=== PATIENT | male | born 1940 | race Caucasian/White ===

== ENCOUNTER 2021-04-16 12:45 | Emergency (ER) | payer MEDICARE, OTHER, SELFPAY ==
--- NOTE | ~2021-04-16 | XR_ITS ---
XR lumbar spine 2-3V DATE: 04/16/2021 13:24 INDICATION: Fall backwards. Right low back pain. TECHNIQUE: AP, lateral, coned lateral lumbosacral views COMPARISON: None FINDINGS: There is degenerative spurring of the lower thoracic spine, particularly at T11-12. There is moderate degenerative disc disease at L1-2, L2-3, L3-4 and mild degenerative disc disease at L4-5. There is severe degenerative disc disease at L5-S1. There is mild retrolisthesis at L2-3. There is grade 1 anterolisthesis due to degenerative change at the apophyseal joints at L3-4 and L4-5 . No fracture or bone destruction is evident. The lumbar pedicles are intact. Status post L4 laminectomy. The sacroiliac joints are intact. There is a 2.5 cm sclerotic lesion of the right superior acetabulum and a 1 cm sclerotic lesion of S2 ; consider bone islands versus osteosclerotic metastatic disease from prostate cancer. 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 Radionuclide bone scan can help differentiate these possibilities. Reviewed, dictated and finalized at location A. 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 Radionuclide bone scan can hel p differentiate these possibilities.
[2021-04-16 12:56] VITALS: BP 145/76; PULSE 75; RESP 16; TEMP 36.8; O2SAT 100
--- NOTE | 2021-04-16 12:56 | ED.BACK ---
HPI - Back Pain/Injury General Chief Complaint: Back Pain/Injury Stated Complaint: Back pain from fall Time Seen by Provider: 04/16/21 13:30 Source: patient and RN notes reviewed Mode of arrival: ambulatory Limitations: no limitations History of Present Illness HPI Narrative: 81-year-old male presents with concern for back pain after a fall. 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 He reports he tripped on a bathroom carpet and fell 2 days ago aggravating his back pain reports pain on the right lower back. He denies hip pain, groin pain. Reports he can find a position of comfort, however movement exacerbates the pain. He denies abdominal pain, fever, loss of bowel or bladder function, perianal anesthesia, new weakness in any extremity. MD elicited complaint: back pain Related Data Home Medications Medication Instructions Recorded Confirmed carvedilol 12.5 mg PO BID 04/16/21 04/16/21 famotidine 20 mg PO DAILY 04/16/21 04/16/21 hydrochlorothiazide 12.5 mg PO DAILY 04/16/21 04/16/21 prednisone 300 mg PO 2XW 04/16/21 04/16/21 simvastatin 20 mg PO DAILY 04/16/21 04/16/21 Allergies Allergy/AdvReac Type Severity Reaction Status Date / Time losartan Allergy Swelling Verified 04/16/21 13:09 Review of Systems Review of Systems: CONSTITUTIONAL: Denies malaise, chills, sweats, or fever. CARDIOVASCULAR: Denies chest pain, palpitations, or edema. RESPIRATORY: Denies cough or dyspnea. GASTROINTESTINAL: Denies abdominal pain, denies loss of bowel function or perianal anesthesia : Denies loss of bladder function SKIN: Denies rash or itching. MUSCULOSKELETAL: Reports right low back pain NEUROLOGIC: Denies numbness, weakness, or headache. All systems reviewed & are unremarkable except as noted in HPI and below PMFSH Comments At time of signature, agree with nursing past medical, surgical, social and family history. There is no relevant family history pertinent to the presenting complaint Exam Narrative: GENERAL: Well-appearing, well-nourished, and in no acute distress. HEAD: Normocephalic, atraumatic. EYES: PERRLA and EOMI. NECK: Supple. No lymphadenopathy. CHEST: Clear to auscultation. No respiratory distress. HEART: Regular rate and rhythm. Distal pulses palpable and equal, cap refill <3 seconds ABDOMEN: Soft, nontender, nondistended, normal active bowel sounds, no palpable or pulsatile masses. No CVA tenderness MUSCULOSKELETAL: Normal range of motion before patient and strength in all extremities; 5/5 strength with dorsiflexion and extension, knee flexion and extension, plantar flexion and extension. Normal sensation in dermatomal distributions with sensitivity to light touch. No midline back tenderness to palpation. No paraspinal tenderness. Transfers from lsitting to standing. SKIN: Warm, dry, no rash. No ecchymosis, erythema, open wounds to back. NEURO: No focal deficits. Alert and oriented x3. Patient walking with a walker. PSYCH: Normal mood and affect Course Course Emergency Course: Endings with patient, including acetabular lesions. Discussed need for follow-up with primary care provider for further evaluation. Patient reports he will call his primary care provider and will also follow-up with his neurologist. Patient is aware of diagnosis, understands and agrees to treatment plan. Anticipatory guidance given. Patient agrees to follow-up as directed and is aware of reasons to seek care at the emergency department. Portions of this record may have been created with voice recognition software Vital Signs Vital signs: Reviewed. MDM - Back Pain/Injury MDM Narrative Medical decision making narrative: No risk factors or findings concerning for epidural abscess, diskitis, vertebral osteomyelitis, cord compression, cauda equina, vertebral fracture or bone malignancy, AAA, or pyelonephritis. Patient instructed to consider further imaging and workup thr
[2021-04-16 13:13] VITALS: BP 145/76; PULSE 75; RESP 16; TEMP 36.8; O2SAT 100
== END 2021-04-16 13:53 | disposition home or self-care (01) ==
PROVIDERS: Emergency Provider Nurse Practitioner
DX: M54.5 Low back pain (principal); E78.00 Pure hypercholesterolemia, unspecified; I10 Essential (primary) hypertension
CPT/HCPCS: 72100; 99213; G0463

== ENCOUNTER 2021-06-14 15:58 | Emergency (ER) | payer MEDICARE, OTHER, SELFPAY ==
--- NOTE | ~2021-06-14 | XR_ITS ---
EXAMINATION: XR shoulder LT min 2V INDICATION: Left shoulder pain TECHNIQUE: Four views of the left shoulder are submitted. COMPARISON: None FINDINGS: There are changes of left total shoulder arthroplasty. Bone alignment is normal. There is n o fracture. Soft tissues are unremarkable. IMPRESSION: 1. No acute osseous abnormality. Reviewed, dictated and finalized at location A.
[2021-06-14 16:16] VITALS: BP 121/64; PULSE 68; RESP 20; TEMP 36.8; O2SAT 99
--- NOTE | 2021-06-14 17:33 | ED.UPPEXIN ---
HPI - Extremity Injury (Upper) General Chief Complaint: Extremity Injury, Upper Stated Complaint: Shoulder complaint Time Seen by Provider: 06/14/21 17:22 Source: patient and RN notes reviewed Mode of arrival: ambulatory Limitations: no limitations History of Present Illness HPI narrative: Patient presents today complaining of left shoulder pain x2 weeks, worse over the last 2 days. Patient states he has frequent falls, almost daily, but cannot specify whether or not he has had any over the last 2 days because he does not keep track. Patient had a left total shoulder replacement approximately 2 years ago. He walked into his orthopedic doctor's office today requesting an x-ray and they could not accommodate or see him and he has come in here today requesting an x-ray. Denies any injury. Pain increases with movement. Patient is newly diabetic and is requesting that we check his blood sugar as well. MD complaint: injury to: left and shoulder Related Data Home Medications Medication Instructions Recorded Confirmed carvedilol 12.5 mg PO BID 04/16/21 06/14/21 famotidine 20 mg PO DAILY 04/16/21 06/14/21 hydrochlorothiazide 12.5 mg PO DAILY 04/16/21 06/14/21 prednisone 300 mg PO 2XW 04/16/21 06/14/21 simvastatin 20 mg PO DAILY 04/16/21 06/14/21 alendronate 70 mg PO WEEKLY 06/14/21 06/14/21 amlodipine 5 mg PO DAILY 06/14/21 06/14/21 calcium carbonate-vitamin D3 1 tablet PO BID 06/14/21 06/14/21 [Oysco 500/D] insulin NPH isoph U-100 human See Rx Instructions .ROUTE .COMPLEX 06/14/21 06/14/21 [Humulin N NPH Insulin KwikPen] trazodone 50 mg PO DAILY 06/14/21 06/14/21 Allergies Allergy/AdvReac Type Severity Reaction Status Date / Time losartan Allergy Swelling Verified 06/14/21 16:27 Review of Systems Review of Systems: CONSTITUTIONAL: Denies body aches, fever, chills, or sweats. EYES: Denies visual changes, redness, or discharge. ENT: Denies rhinorrhea, congestion, sore throat, or otalgia. CARDIOVASCULAR: Denies chest pain, palpitations, or edema. RESPIRATORY: Denies cough or dyspnea. GASTROINTESTINAL: Denies abdominal pain, nausea, vomiting, or diarrhea. GENITOURINARY: Denies dysuria or hematuria. SKIN: Denies rash, itching, or wounds. MUSCULOSKELETAL: Denies back pain, or myalgia. + Left shoulder pain NEUROLOGIC: Denies headache, numbness, tingling, or weakness. PSYCH: Denies depression or anxiety. [facility] Past Medical History Medical History (Updated 06/15/21 @ 00:00 by Skyler Poon) Diabetes Surgical History Surgical History (Updated 06/14/21 @ 17:35 by Johana Wheeler, [facility], ) H/O total shoulder replacement Comments At time of signature, I have reviewed and agree with nursing past medical, surgical, social and family history unless otherwise noted. Please see nursing chart for further information. There is no relevant family history pertinent to the presenting complaint Exam Narrative: GENERAL: Well-appearing, well-nourished, and in no acute distress. HEAD: Normocephalic, atraumatic. EYES: EOMI. No redness or drainage. Conjunctivae normal. ENT: Mucous membranes pink and moist. NECK: Normal AROM. CHEST: No respiratory distress. EXTREMITIES: Left shoulder: Tenderness to anterior and lateral shoulder. Pain with any movement. Distal sensation intact. Capillary refill normal. Radial pulse normal. Patient has 4 fingers on the right hand. SKIN: Warm, dry, no rash. Capillary refill normal. Normal skin turgor. NEURO: No focal deficits. Alert and oriented x3. Gait steady. PSYCH: Normal affect. No signs of depression or anxiety. Course Vital Signs Vital signs: Vital Signs Temperature 98.2 F 06/14/21 16:16 Pulse Rate 68 06/14/21 16:16 Respiratory Rate 06/14/21 16:16 Blood Pressure 121/64 06/14/21 16:16 Pulse Oximetry 99 06/14/21 16:16 Temperature 98.2 F 06/14/21 16:16 Pulse Rate 68 06/14/21 16:16 Respiratory Rate 06/14/21 16:16 Blood Pressure 1
[2021-06-14 17:39] LABS: Glucose Point of Care 111 mg/dl (65-105)
--- NOTE | 2021-06-14 18:50 | PC.NURSE ---
1819 noted pt requested fingerstick blood sugar during stay. reports he is a new diabetic and monitors blood sugar closely at home. denies symptoms for hypoglycemia.
== END 2021-06-14 18:20 | disposition home or self-care (01) ==
PROVIDERS: Emergency Provider Nurse Practitioner
DX: M25.512 Pain in left shoulder (principal); E11.9 Type 2 diabetes mellitus without complications; Z79.4 Long term (current) use of insulin; Z96.612 Presence of left artificial shoulder joint
CPT/HCPCS: 73030; 82948; 99213; G0463

== ENCOUNTER 2022-10-26 15:55 | Emergency (ER) | payer MEDICARE, OTHER, SELFPAY ==
--- NOTE | 2022-10-26 15:58 | ED.EYEPROB ---
HPI - Eye Problem General Chief complaint: Eye Problems Stated complaint: Eye Problem Time Seen by Provider: 10/26/22 16:15 Source: patient and RN notes reviewed Mode of arrival: ambulatory Limitations: no limitations History of Present Illness HPI Narrative: 82-year-old male presents concern for left eye pain. Reports he was at the [facility] today for prolonged workup of an eye problem he has been having. Reports they numb his eye for this exam. Reports when he got home and the numbness for off he had pain to his eye. He denies any vision changes. Reports watery drainage. MD chief complaint: eye pain Related Data Home Medications Medication Instructions Recorded Confirmed carvedilol 12.5 mg tablet 12.5 mg PO BID 04/16/21 06/14/21 hydrochlorothiazide 12.5 mg tablet 12.5 mg PO DAILY 04/16/21 06/14/21 prednisone 50 mg tablet 300 mg PO 2XW 04/16/21 06/14/21 simvastatin 20 mg tablet 20 mg PO DAILY 04/16/21 06/14/21 insulin NPH isoph U-100 human 100 See Rx Instructions .Route .COMPLEX 06/14/21 06/14/21 unit/mL (3 mL) subcutaneous pen (Humulin N NPH U-100 Insulin KwikPen) calcium carbonate 500 mg calcium 500 mg PO BID 10/26/22 10/26/22 (1,250 mg) tablet furosemide 40 mg tablet 40 mg PO DAILY 10/26/22 10/26/22 Allergies Allergy/AdvReac Type Severity Reaction Status Date / Time losartan Allergy Swelling Verified 10/26/22 16:27 Review of Systems Review of Systems: CONSTITUTIONAL: Denies malaise, chills, sweats, or fever. EYES: Denies visual changes. Reports left eye redness, pain, watery discharge. ENT: Denies rhinorrhea, congestion, sinus pain, otalgia or sore throat. SKIN: Denies rash or itching. NEUROLOGIC: Denies numbness, weakness, or headache. PSYCHIATRIC: Denies anxiety or depression. All systems reviewed & are unremarkable except as noted in HPI and below PMFSH Past Medical History Medical History (Updated 10/26/22 @ 16:28 by Nan Anthony NP) Diabetes Surgical History Surgical History (Updated 06/14/21 @ 17:35 by Johana Wheeler, [employer], [place]) H/O total shoulder replacement Comments At time of signature, agree with nursing past medical, surgical, social and family history. There is no relevant family history pertinent to the presenting complaint Exam Narrative: GENERAL: Well-appearing, well-nourished, and in no acute distress. HEAD: Normocephalic, atraumatic. EYES: PERRLA, right conjunctivae and sclera clear, and EOMI. No nystagmus. Left conjunctivae clear, sclera injected with corneal abrasion noted the plan was lamp exam. Upper and lower eyelid unremarkable, no periorbital edema noted ENT: Nares clear. Mucous membranes moist. NECK: Supple. CHEST: No respiratory distress. Speaks in full sentences. HEART: Regular rate and rhythm. SKIN: Warm, dry, no visible rash. NEURO: Alert and oriented x3. PSYCH: Normal mood and affect Course Course Emergency Course: Patient is aware of diagnosis, understands and agrees to treatment plan. Anticipatory guidance given. Patient agrees to follow-up as directed and is aware of reasons to seek care at the emergency department. Portions of this record may have been created with voice recognition software Level of Care: Express Care Visit Vital Signs Vital signs: Reviewed. Procedures Other Procedure Procedure 1: Other Procedure: Tetracaine 1 gtt instilled in left eye, fluorescein stain applied. Corneal abrasion noted upon martinez lamp exam at approximately 6 and 7 o'clock in relation to the pupil. Eye washed with NS 100 ml. No foreign bodies or Ben sign noted. MDM - Eye Problem MDM Narrative Medical decision making narrative: Consideration of the following conditions may be warranted for the presenting problem, they are not final diagnoses: Bacterial conjunctivitis, allergic conjunctivitis, viral conjunctivitis, foreign body, blepharitis, chalazion, hordeolum, corneal abrasion, preseptal cellulitis, orbital cellulitis. No
[2022-10-26 16:02] VITALS: BP 175/113; PULSE 70; RESP 20; TEMP 36.2; O2SAT 100
== END 2022-10-26 16:58 | disposition home or self-care (01) ==
PROVIDERS: Emergency Provider Nurse Practitioner; PCP Internal Medicine
DX: S05.02XA Injury of conjunctiva and corneal abrasion without foreign body, left eye, initial encounter (principal); E11.9 Type 2 diabetes mellitus without complications; Z79.4 Long term (current) use of insulin; X58.XXXA Exposure to other specified factors, initial encounter
CPT/HCPCS: 99213; A9270; G0463

== ENCOUNTER 2022-10-28 10:25 | Emergency (ER) | payer MEDICARE, OTHER, SELFPAY ==
--- NOTE | ~2022-10-28 | XR_ITS ---
Right Shoulder Technique: AP and axillary views were obtained. Clinical History: Pain Findings: No fracture or dislocation is seen. Suture anchor is noted in the right humeral head. There is moderate AC joint degenerative change. There is minimal glenohumeral joint degenerative change. S oft tissues are unremarkable. Impression: No acute fracture or dislocation. Degenerative changes, as above. Suture anchors at the humeral head. Reviewed, dictated and finalized at location . OL COUNSELOR Impression: No acute fracture or dislocation. Degenerative changes, as above. Suture anchors at the humeral head.
--- NOTE | ~2022-10-28 | XR_ITS ---
Lumbosacral Spine: AP and lateral views Clinical History: Pain COMPARISON: 04/16/2021 Findings: The normal lordotic curve is maintained. No acute fracture seen. 5 mm anterolisthesis of L3 over L4 noted. 4 mm retrolisthesis of L2 over L3 noted. There are diffuse facet joint degenerative c hanges in lumbar spine, especially from L3 through S1. There is advanced degenerative disc narrowing at L5-S1. The sacroiliac joints are normally outlined. Stable sclerotic lesion noted in the superior right acetabular region. Impression: No acute fracture. Moderate degenerative spondylosis, similar to prior exam. 5 mm anterolisthesis of L3 over L4. 4 mm retrolisthesis of L2 over L3. Stable sclerotic lesion, partially imaged in the superior right acetabular region. Reviewed, dictated and finalized at [facility]. 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 Moderate degenerative spondylosis, similar to prior exam. 5 mm anterolisthesis of L3 over L4. 4 mm retrolisthesis of L2 over L3. Stable sclerotic lesion, partially imaged in the superior right acetabular tacho on.
[2022-10-28 10:31] VITALS: BP 125/72; PULSE 78; RESP 16; TEMP 36.6; O2SAT 98
--- NOTE | 2022-10-28 10:51 | ED.BACK ---
HPI - Back Pain/Injury General Chief Complaint: Back Pain/Injury Stated Complaint: Back and shoulder injury Time Seen by Provider: 10/28/22 10:35 Source: patient Mode of arrival: ambulatory Limitations: no limitations History of Present Illness HPI Narrative: Jayce is an 82-year-old male patient presenting to the clinic today with complaints of right-sided low back pain and right shoulder pain after a fall 5 days ago. He reports he fell over a stack of chairs and tripped on a step and fell into a sunken living room. He reports pain to the right lateral shoulder and to the right low back. History of back surgery Related Data Home Medications Medication Instructions Recorded Confirmed carvedilol 12.5 mg tablet 12.5 mg PO BID 04/16/21 10/28/22 hydrochlorothiazide 12.5 mg tablet 12.5 mg PO DAILY 04/16/21 10/28/22 prednisone 50 mg tablet 250 mg PO Q48H 04/16/21 10/28/22 simvastatin 20 mg tablet 20 mg PO DAILY 04/16/21 10/28/22 insulin NPH isoph U-100 human 100 See Rx Instructions .Route .COMPLEX 06/14/21 10/28/22 unit/mL (3 mL) subcutaneous pen (Humulin N NPH U-100 Insulin KwikPen) calcium carbonate 500 mg calcium 500 mg PO BID 10/26/22 10/28/22 (1,250 mg) tablet furosemide 40 mg tablet 40 mg PO DAILY 10/26/22 10/28/22 Allergies Allergy/AdvReac Type Severity Reaction Status Date / Time losartan Allergy Swelling Verified 10/28/22 10:30 Review of Systems Review of Systems: Pertinent positives per HPI. Patient denies any fever, chills, rash, headache, visual changes, dizziness, cough, runny nose, sore throat, shortness of breath, chest pain, palpitations, nausea, vomiting, diarrhea, constipation, abdominal pain, or any urinary issues. [facility] Past Medical History Medical History Diabetes Surgical History Surgical History H/O total shoulder replacement Comments At the time of my signature, I reviewed and agree with the nursing past medical, surgical, social, and family history. There is no relevant family history pertinent to the patient complaint. Exam Narrative: General: Well-developed, well nourished, in no apparent distress Head: Normocephalic, atraumatic. Cardio: Regular rate and rhythm, s1 and s2 normal, no murmur appreciated. Resp: Clear to auscultation bilaterally, no rhonchi, rales, wheezing or rubs. Musculoskeletal: No deformity, tender to palpation over the right lower back and the lateral shoulder, grossly normal range of motion, muscle strength strong and equal, peripheral pulse strong, no edema, no cyanosis, normal gait and station Course Course Emergency Course: Portions of this record may have been created with voice recognition software. Level of Care: Express Care Visit Vital Signs Vital signs: Vital Signs Temperature 36.6 C 10/28/22 10:31 Pulse Rate 78 10/28/22 10:31 Respiratory Rate 16 10/28/22 10:31 Blood Pressure 125/72 10/28/22 10:31 Pulse Oximetry 98 10/28/22 10:31 Oxygen Delivery Room Air 10/28/22 10:31 Temperature 36.6 C 10/28/22 10:31 Pulse Rate 78 10/28/22 10:31 Respiratory Rate 16 10/28/22 10:31 Blood Pressure 125/72 10/28/22 10:31 Pulse Oximetry 98 10/28/22 10:31 Oxygen Delivery Room Air 10/28/22 10:31 Vital signs reviewed MDM - Back Pain/Injury MDM Narrative Medical decision making narrative: At the time of visit patient is resting comfortably on exam table. X-rays of the right shoulder and lumbar spine obtained and were negative for any acute fracture or malalignment. I suspect the patient has no back and shoulder contusion. Supportive measures were discussed with the patient he voiced understanding of discharge instructions and agrees to treatment plan Differential Diagnosis Differential diagnosis: Likely strain of lumbar region and other (Soft tissue injury, lumbar spine fracture) Imaging
--- NOTE | 2022-10-28 11:28 | PC.NURSE ---
PT TAKEN TO RADIOLOGY IN WHEELCHAIR
== END 2022-10-28 11:18 | disposition home or self-care (01) ==
PROVIDERS: Emergency Provider Nurse Practitioner Family
DX: M54.50 Low back pain, unspecified (principal); S40.011A Contusion of right shoulder, initial encounter; W01.0XXA Fall on same level from slipping, tripping and stumbling without subsequent striking against object, initial encounter; E11.9 Type 2 diabetes mellitus without complications; Z79.4 Long term (current) use of insulin
CPT/HCPCS: 72100; 73030; 99214; G0463

== ENCOUNTER 2022-11-22 13:06 | Emergency (ER) | payer MEDICARE, OTHER, SELFPAY ==
--- NOTE | ~2022-11-22 | XR_ITS ---
XR foot RT min 3V DATE: 11/22/2022 13:50 INDICATION: Fell up and then down steps on 11/21/2022 TECHNIQUE: 4 views COMPARISON: None FINDINGS: Osteopenia. There is a staple of the proximal phalanx of the first digit and radiopaque fusion devices bridging t he proximal interphalangeal joints of the second through fourth digits. Hallux valgus and bunion deformity. Severe osteoarthritis at the first metatarsophalangeal joint. Prominent plantar and posterior calcaneal enthesopathy without erosive change or periostitis. Degenerative changes at the tibiotalar and tarsal joints. 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
--- NOTE | ~2022-11-22 | XR_ITS ---
XR ankle RT min 3V DATE: 11/22/2022 13:51 INDICATION: Fell up and then down steps on 11/21/2022. Medial pain. TECHNIQUE: 4 views COMPARISON: None FINDINGS: No fracture or dislocation of the ankle or disruption of the ankle mortise is detected. There is osteoarthritis of the tibiotalar joint. Prominent plantar and posterior calcaneal enthesopathy. Postoperative changes at the first through fourth phalanges. IMPRESSION: Prominent plantar and posterior calcaneal enthesopathy Osteoarthritic arthritis at tibiotalar joint No fracture or dislocation Reviewed, dictated and finalized at location L. 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
[2022-11-22 13:13] VITALS: BP 155/76; PULSE 80; RESP 18; TEMP 36.6; O2SAT 98
--- NOTE | 2022-11-22 13:32 | ED.LOWEXIN ---
HPI - Extremity Injury (Lower) General Chief Complaint: Extremity Injury, Lower Stated Complaint: Right ankle injury Source: patient and RN notes reviewed History of Present Illness HPI Narrative: 82-year-old male presents urgent care with complaints right foot bruising and swelling. Patient states yesterday he tripped up the stairs causing him to injure his right foot. Patient reports history of neuropathy in both lower legs and feet but states yesterday after the incident he had a sharp pain in his right medial foot that radiated up to his ankle. Patient denies any head injury or LOC. Denies any neck pain, chest pain, or shortness of breath. Some parts of this dictation were generated by voice recognition software and may contain typographical and/or grammatical inaccuracies. Related Data Home Medications Medication Instructions Recorded Confirmed carvedilol 12.5 mg tablet 12.5 mg PO BID 04/16/21 11/22/22 hydrochlorothiazide 12.5 mg tablet 12.5 mg PO DAILY 04/16/21 11/22/22 prednisone 50 mg tablet 250 mg PO Q48H 04/16/21 11/22/22 simvastatin 20 mg tablet 20 mg PO DAILY 04/16/21 11/22/22 insulin NPH isoph U-100 human 100 See Rx Instructions .Route .COMPLEX 06/14/21 11/22/22 unit/mL (3 mL) subcutaneous pen (Humulin N NPH U-100 Insulin KwikPen) calcium carbonate 500 mg calcium 500 mg PO BID 10/26/22 11/22/22 (1,250 mg) tablet furosemide 40 mg tablet 40 mg PO DAILY 10/26/22 11/22/22 Allergies Allergy/AdvReac Type Severity Reaction Status Date / Time losartan Allergy Swelling Verified 11/22/22 13:19 Review of Systems Review of Systems: CONSTITUTIONAL: Denies fever, chills, or sweats. EYES: Denies visual changes, redness, or discharge. ENT: Denies otalgia and sore throat CARDIOVASCULAR: Denies chest pain, palpitations, or edema. RESPIRATORY: Denies cough or dyspnea. GASTROINTESTINAL: Denies abdominal pain, nausea, vomiting, or diarrhea. GENITOURINARY: Denies dysuria or hematuria. SKIN: Bruising to right foot MUSCULOSKELETAL: Right foot swelling NEUROLOGIC: Denies headache, numbness, or weakness. [facility] Past Medical History Medical History Diabetes Surgical History Surgical History H/O total shoulder replacement Comments At the time of my signature, I reviewed and agree with the nursing past medical, surgical, social, and family history. There is no relevant family history pertinent to the patient complaint. Exam Narrative: GENERAL: This is a well-nourished, well-developed patient, in no apparent distress. HEAD: normocephalic, atraumatic. EYES: PERRL. Sclera clear/white. Vision is grossly intact. EARS: External ears normal, auditory canals clear and without drainage, TMs normal without perforation. Hearing grossly intact. NOSE: External nose normal with no obvious nasal discharge, nares without redness, no rhinorrhea. THROAT: Mucous membranes moist, posterior pharynx clear. NECK: Neck supple, non-tender without lymphadenopathy, masses or thyromegaly. CARDIOVASCULAR: Regular rate and rhythm without murmurs, gallops, or rubs. RESPIRATORY: Clear to auscultation. Breath sounds equal bilaterally. No wheezes, rales, or rhonchi. GASTROINTESTINAL: Abdomen soft, non-tender, nondistended. Bowel sounds are active. No hepato-splenomegaly, or palpable masses. No guarding. SKIN: Ecchymosis noted to right lateral and dorsal foot. NEURO: awake, alert, and oriented to person, place and time. There were no obvious focal neurologic abnormalities. EXTREMITIES: Right foot is edematous. BACK: Nontender without deformity or crepitance. No flank tenderness. Course Course Level of Care: Express Care Visit Vital Signs Vital signs: Vital Signs Temperature 97.9 F 11/22/22 13:13 Pulse Rate 80 11/22/22 13:13 Respiratory Rate 18 11/22/22 13:13 Blood Pressure 155/76 H 11/22/22 13:13 Pulse Ox
== END 2022-11-22 14:27 | disposition home or self-care (01) ==
PROVIDERS: Emergency Provider Nurse Practitioner Family; PCP Internal Medicine
DX: S93.601A Unspecified sprain of right foot, initial encounter (principal); E11.9 Type 2 diabetes mellitus without complications; Z79.4 Long term (current) use of insulin; W10.8XXA Fall (on) (from) other stairs and steps, initial encounter
CPT/HCPCS: 73610; 73630; 99213; G0463

== ENCOUNTER 2022-12-06 12:57 | Emergency (ER) | payer MEDICARE, OTHER, SELFPAY ==
--- NOTE | ~2022-12-06 | XR_ITS ---
EXAMINATION: XR shoulder RT min 2V, XR humerus RT DATE: 12/06/2022 14:04 INDICATION: Right shoulder and upper arm pain post fall few weeks prior. TECHNIQUE: 1. AP internally and externally rotated, AP oblique externally rotated and transscapular Y views of t he right shoulder were obtained. 2. Internal and externally rotated views of the right humerus were obtained. COMPARISON: Right shoulder radiographs dated 10/28/2022 FINDINGS: Normal alignment. No fracture. Mild polyarticular osteoarthritis at the right acromioclavicular, gle nohumeral and elbow joints. Suture anchors along the right greater tuberosity consistent with prior r otator cuff repair. Prominent bone island along the inferior glenoid. Soft tissues are unremarkable. Visualized portion of the lungs are clear. IMPRESSION: Mild polyarticular osteoarthritis at the right shoulder and elbow. No acute onset abnormality. Reviewed, dictated and finalized at location A. IMPRESSION: Mild polyarticular osteoarthritis at the right shoulder and elbow. No acute ons et abnormality.
[2022-12-06 13:08] VITALS: BP 181/82; PULSE 91; RESP 24; TEMP 36.8; O2SAT 95
--- NOTE | 2022-12-06 13:30 | ED.UPPEXIN ---
HPI - Extremity Injury (Upper) General Chief Complaint: Extremity Injury, Upper Stated Complaint: right arm injury Time Seen by Provider: 12/06/22 14:35 Source: patient and RN notes reviewed Mode of arrival: ambulatory Limitations: no limitations History of Present Illness HPI narrative: 82-year-old male presents with concern for right shoulder and arm pain. Reports he fell about a week ago. Reports he was seen for his ankle which was bothering him the most of the time. Reports he was not seen for his shoulder at that time. Reports he has been taking ibuprofen complaint: injury to: right and shoulder Related Data Home Medications Medication Instructions Recorded Confirmed carvedilol 12.5 mg tablet 12.5 mg PO BID 04/16/21 11/22/22 hydrochlorothiazide 12.5 mg tablet 12.5 mg PO DAILY 04/16/21 11/22/22 prednisone 50 mg tablet 250 mg PO Q48H 04/16/21 11/22/22 simvastatin 20 mg tablet 20 mg PO DAILY 04/16/21 11/22/22 insulin NPH isoph U-100 human 100 See Rx Instructions .Route .COMPLEX 06/14/21 11/22/22 unit/mL (3 mL) subcutaneous pen (Humulin N NPH U-100 Insulin KwikPen) calcium carbonate 500 mg calcium 500 mg PO BID 10/26/22 11/22/22 (1,250 mg) tablet furosemide 40 mg tablet 40 mg PO DAILY 10/26/22 11/22/22 apixaban 5 mg tablet (Eliquis) mg 12/06/22 Allergies Allergy/AdvReac Type Severity Reaction Status Date / Time losartan Allergy Swelling Verified 11/22/22 13:19 Review of Systems Review of Systems: CONSTITUTIONAL: Denies malaise, chills, sweats, or fever. CARDIOVASCULAR: Denies chest pain, palpitations, or edema. RESPIRATORY: Denies cough or dyspnea. SKIN: Denies rash or itching, bruising, redness, swelling. MUSCULOSKELETAL: Reports right shoulder and arm pain NEUROLOGIC: Denies numbness, weakness All systems reviewed & are unremarkable except as noted in HPI and below PMFSH Past Medical History Medical History Diabetes Surgical History Surgical History H/O total shoulder replacement Comments At time of signature, agree with nursing past medical, surgical, social and family history. There is no relevant family history pertinent to the presenting complaint Exam Narrative: GENERAL: Well-appearing, well-nourished, and in no acute distress. HEAD: Normocephalic, atraumatic. EYES: PERRLA, conjunctivae clear NECK: Supple. CHEST: Speaks in full sentences. No respiratory distress. HEART: Regular rate and rhythm. Normal and equal peripheral pulses. EXTREMITIES: Right shoulder and arm have grossly normal strength and sensation, limited range of motion. No edema or ecchymosis. 5/5 strength with shoulder abduction, adduction. Normal sensation with sensitivity to light touch and pain. No point tenderness. No open wounds, no skin tenting, no devitalized tissue or atrophy, no trophic changes, no obvious deformity, alignment normal, nearby joints and structures intact. Distal pulses palpable and equal bilaterally, skin warm, dry, pink. Capillary refill less than 3 seconds. SKIN: Warm, dry, no rash. NEURO: Alert and oriented x3. PSYCH: Normal mood and affect Course Course Emergency Course: Patient is aware of diagnosis, understands and agrees to treatment plan. Anticipatory guidance given. Patient agrees to follow-up as directed and is aware of reasons to seek care at the emergency department. Portions of this record may have been created with voice recognition software Level of Care: Express Care Visit Vital Signs Vital signs: Vital Signs Temperature 98.3 F 12/06/22 13:08 Pulse Rate 91 12/06/22 13:08 Respiratory Rate 24 H 12/06/22 13:08 Blood Pressure 181/82 H 12/06/22 13:08 Pulse Oximetry 95 12/06/22 13:08 Oxygen Delivery Room Air 12/06/22 13:08 Temperature 98.3 F 12/06/22 13:08 Pulse Rate 91 12/06/22 13:08 Respiratory Rate 24 H 12/06/22 13
== END 2022-12-06 14:49 | disposition home or self-care (01) ==
PROVIDERS: Emergency Provider Nurse Practitioner; PCP Internal Medicine
DX: S49.91XA Unspecified injury of right shoulder and upper arm, initial encounter (principal); W19.XXXA Unspecified fall, initial encounter; E11.9 Type 2 diabetes mellitus without complications; Z79.4 Long term (current) use of insulin
CPT/HCPCS: 73030; 73060; 99214; A4565; G0463

== ENCOUNTER 2023-03-16 15:25 | Emergency (ER) | payer MEDICARE, OTHER, SELFPAY ==
[2023-03-16 15:36] VITALS: BP 148/85; PULSE 99; RESP 16; TEMP 36.2; O2SAT 98
--- NOTE | 2023-03-16 15:48 | ED.MALEGU ---
HPI - Male Genitourinary General Chief complaint: Urogenital-Male Stated complaint: Urinary Problem Source: patient and RN notes reviewed Limitations: no limitations History of Present Illness HPI Narrative: Patient is an 83-year-old male who presents to the [facility] with urinary urgency and frequency. Patient states that he urinates small amounts very frequently. States that his symptoms have been present for 3 weeks. He denies dysuria, flank pain, hematuria. Denies recent fevers or chills. He reports history frequent UTIs and pyelonephritis. States that he is unable to get in to his urologist until April 18. States that he wanted to make sure he did not have an UTI today. Related Data Home Medications Medication Instructions Recorded Confirmed carvedilol 12.5 mg tablet 12.5 mg PO BID 04/16/21 03/16/23 hydrochlorothiazide 12.5 mg tablet 12.5 mg PO DAILY 04/16/21 11/22/22 simvastatin 20 mg tablet 20 mg PO DAILY 04/16/21 03/16/23 insulin NPH isoph U-100 human 100 See Rx Instructions .Route .COMPLEX 06/14/21 11/22/22 unit/mL (3 mL) subcutaneous pen (Humulin N NPH U-100 Insulin KwikPen) furosemide 40 mg tablet 40 mg PO DAILY 10/26/22 03/16/23 apixaban 5 mg tablet (Eliquis) 5 mg PO DAILY 12/06/22 03/16/23 alendronate 70 mg tablet 70 mg PO DAILY 03/16/23 03/16/23 donepezil 5 mg tablet 5 mg PO DAILY 03/16/23 03/16/23 famotidine 20 mg tablet 20 mg PO BID 03/16/23 03/16/23 mycophenolate mofetil 500 mg tablet 500 mg PO BID 03/16/23 03/16/23 prednisone 10 mg tablet 10 mg PO DIRECTED 03/16/23 03/16/23 Allergies Allergy/AdvReac Type Severity Reaction Status Date / Time losartan Allergy Swelling Verified 11/22/22 13:19 Review of Systems Review of Systems: CONSTITUTIONAL: Denies fever, chills, or sweats. EYES: Denies visual changes, redness, or discharge. ENT: Denies otalgia and sore throat CARDIOVASCULAR: Denies chest pain, palpitations, or edema. RESPIRATORY: Denies cough or dyspnea. GASTROINTESTINAL: Denies abdominal pain, nausea, vomiting, or diarrhea. GENITOURINARY: Reports urinary urgency and frequency. Denies dysuria or hematuria. SKIN: Denies rash or itching. MUSCULOSKELETAL: Denies back pain, joint pain, or myalgia. NEUROLOGIC: Denies headache, numbness, or weakness. Pertinent positives per HPI. PMFSH Past Medical History Medical History Diabetes Surgical History Surgical History H/O total shoulder replacement Comments At the time of my signature, I reviewed and agree with the nursing past medical, surgical, social, and family history. There is no relevant family history pertinent to the patient complaint. Exam Narrative: GENERAL: This is a well-nourished, well-developed patient, in no apparent distress. HEAD: normocephalic, atraumatic. EYES: Sclera clear/white. Vision is grossly intact. EARS: External ears normal. Hearing grossly intact. NOSE: External nose normal with no obvious nasal discharge, nares without redness, no rhinorrhea. THROAT: Mucous membranes moist. NECK: Neck supple, non-tender without lymphadenopathy, masses or thyromegaly. CARDIOVASCULAR: Regular rate and rhythm without murmurs, gallops, or rubs. RESPIRATORY: Clear to auscultation. Breath sounds equal bilaterally. No wheezes, rales, or rhonchi. GASTROINTESTINAL: Abdomen soft, non-tender, nondistended. Bowel sounds are active. No hepato-splenomegaly, or palpable masses. No guarding. SKIN: warm, intact with no suspicious lesions or rash, good texture and turgor. NEURO: awake, alert, and oriented to person, place and time. There were no obvious focal neurologic abnormalities. BACK: Nontender without deformity or crepitance. No flank tenderness. Course Course Level of Care: Express Care Visit Vital Signs Vital signs: Vital Signs Temperature 97.2 F L 03/16/23 15:36 Pulse Rate 99 03/16/23 15:36
== END 2023-03-16 16:09 | disposition home or self-care (01) ==
PROVIDERS: Emergency Provider Nurse Practitioner
DX: R35.0 Frequency of micturition (principal); E11.9 Type 2 diabetes mellitus without complications; Z79.4 Long term (current) use of insulin
CPT/HCPCS: 81003; 87086; 87088; 99213; G0463

== ENCOUNTER 2023-05-18 15:14 | Emergency (ER) | payer MEDICARE, OTHER, SELFPAY ==
[2023-05-18 15:20] VITALS: BP 143/73; PULSE 72; RESP 20; TEMP 36.6; O2SAT 97
--- NOTE | 2023-05-18 15:38 | ED.GENADULT ---
HPI - General Adult General Chief complaint: Urogenital-Male Stated complaint: Urinary Problem Time Seen by Provider: 05/18/23 15:38 Source: patient and RN notes reviewed Mode of arrival: ambulatory Limitations: no limitations History of Present Illness HPI narrative: 83-year-old male with a history of frequent UTIs and pyelonephritis, presented for concern of UTI for about 2 days. Endorses urinary frequency and dark colored urine. States since taking steroids for neuropathy he no longer feels burning with urination or 'other symptoms' associated with UTIs. States he used a urine test at home and shows he has a uti. Follows with urology, has not contacted them since onset. Denies abdominal pain, flank pain, hematuria, or change in baseline nocturia. Denies n/v/d/f/c. Hx diabetes (steroid induced), DVT, neuropathy Related Data Home Medications Medication Instructions Recorded Confirmed carvedilol 12.5 mg tablet 12.5 mg PO BID 04/16/21 03/16/23 simvastatin 20 mg tablet 20 mg PO DAILY 04/16/21 03/16/23 insulin NPH isoph U-100 human 100 See Rx Instructions .Route .COMPLEX 06/14/21 11/22/22 unit/mL (3 mL) subcutaneous pen (Humulin N NPH U-100 Insulin KwikPen) furosemide 40 mg tablet 40 mg PO DAILY 10/26/22 03/16/23 apixaban 5 mg tablet (Eliquis) 5 mg PO DAILY 12/06/22 03/16/23 alendronate 70 mg tablet 70 mg PO DAILY 03/16/23 03/16/23 donepezil 5 mg tablet 5 mg PO DAILY 03/16/23 03/16/23 famotidine 20 mg tablet 20 mg PO BID 03/16/23 03/16/23 mycophenolate mofetil 500 mg tablet 500 mg PO BID 03/16/23 03/16/23 prednisone 10 mg tablet 10 mg PO DIRECTED 03/16/23 03/16/23 Allergies Allergy/AdvReac Type Severity Reaction Status Date / Time losartan Allergy Swelling Verified 11/22/22 13:19 Review of Systems Review of Systems: CONSTITUTIONAL: Denies body aches, fever, chills, or sweats. CARDIOVASCULAR: Denies chest pain, palpitations, or edema. RESPIRATORY: Denies cough or dyspnea. GASTROINTESTINAL: Denies abdominal pain, nausea, vomiting, or diarrhea. GENITOURINARY: Reports frequency, urgency, denies dysuria, hematuria, flank pain SKIN: Denies rash, itching, or wounds. MUSCULOSKELETAL: Denies back pain or myalgia. [facility] Past Medical History Medical History (Updated 05/18/23 @ 16:01 by Nilsa Zuniga APRN) Diabetes DVT (deep venous thrombosis) Neuropathy Surgical History Surgical History H/O total shoulder replacement Comments At time of signature, I have reviewed and agree with nursing past medical, surgical, social and family history unless otherwise noted. Please see nursing chart for further information. There is no relevant family history pertinent to the presenting complaint Exam Narrative: GENERAL: Well-appearing and in no acute distress. HEAD: Normocephalic EYES: EOMI. . ENT: Mucous membranes pink and moist. NECK: Normal AROM. Supple. CHEST: No respiratory distress. Clear to auscultation. HEART: Regular rate and rhythm. ABDOMEN: Soft, nontender, nondistended, normal active bowel sounds. No CVA tenderness MUSCULOSKELETAL: No bony tenderness. SKIN: Warm, dry, no rash. Scattered abrasions and bandaids NEURO: No focal deficits. Alert and oriented x3. Using cane. PSYCH: Normal affect. Course Course Emergency Course: Patient is aware of diagnosis, understands and agrees to treatment plan. Anticipatory guidance given. Patient agrees to follow-up as directed and is aware of reasons to seek care at the emergency department. Portions of this record may have been created with voice recognition software Level of Care: Express Care Visit Vital Signs Vital signs: Vital Signs Temperature 97.8 F 05/18/23 15:20 Pulse Rate 72 05/18/23 15:20 Respiratory Rate 20 05/18/23 15:20 Blood Pressure 143/73 H 05/18/23 15:20 Pulse Oximetry 97 05/18/23 15:20 Oxygen Delivery Room Air 05/18/23 15:20 Tempera
== END 2023-05-18 15:54 | disposition home or self-care (01) ==
PROVIDERS: Emergency Provider Nurse Practitioner Family
DX: R35.0 Frequency of micturition (principal); E11.40 Type 2 diabetes mellitus with diabetic neuropathy, unspecified; Z86.718 Personal history of other venous thrombosis and embolism
CPT/HCPCS: 81003; 87086; 99213; G0463